=== PATIENT | female | born 1965 | race Caucasian/White ===

== ENCOUNTER 2019-06-01 15:16 | Emergency (ER) | payer OTHER ==
[~2019-06-01] VITALS: Ht 160 cm; Wt 72.6 kg
[2019-06-01] MEDS ORDERED: AUGMENTIN 875-1 EACH PO (15:34)
[2019-06-01 16:15] VITALS: BP 136/48
== END 2019-06-01 16:04 | disposition home or self-care (01) ==
LOC: ER 15:16
DX: S61.431A Puncture wound without foreign body of right hand, initial encounter (principal); L03.113 Cellulitis of right upper limb; W55.01XA Bitten by cat, initial encounter; Y93.89 Activity, other specified; Y92.89 Other specified places as the place of occurrence of the external cause; Y99.8 Other external cause status

== ENCOUNTER 2020-06-10 17:38 | Emergency (ER) | payer OTHER ==
[~2020-06-10] VITALS: Ht 160 cm; Wt 79.4 kg
[~2020-06-10 17:38] MED LIST: AUGMENTIN 875-1 EACH PO
[2020-06-10] MEDS ORDERED: SYNTHROID100 MC1 PO (18:04)
[2020-06-10 18:09] LABS: URINE BILIRUBIN NEGATIVE (Negative); URINE BLOOD TRACE (Negative); URINE CLARITY CLEAR; URINE COLOR YELLOW; URINE GLUCOSE-RANDOM* NEGATIVE (Negative); URINE KETONES NEGATIVE (Negative); URINE LEUKOCYTES-REFLEX NEGATIVE (Negative); URINE NITRITE-REFLEX NEGATIVE (Negative); URINE PROTEIN (DIPSTICK) NEGATIVE (Negative); URINE SPECIFIC GRAVITY >= 1.030 (1.005-1.035); URINE UROBILINOGEN 0.2 E.U./dl (0.2-1.0)
[2020-06-10 19:35] LABS: ABSOLUTE NEUTROPHILS 5.2 thou/uL (1.4-8.2); BASOPHILS 0.8 % (0.0-2.0); EOSINOPHILS 1.8 % (0.0-3.0); HEMATOCRIT 39.5 % (37.0-47.0); LYMPHOCYTES 34.7 % (24.0-44.0); MCH 31.5 pg (26.0-34.0); MCHC 35.5 g/dL (28.0-37.0); MCV 88.7 fL (80.0-100.0); MONOCYTES 7.6 % (1.0-8.0); PLATELET COUNT 406 thou/uL (150-400); POLYS 55.1 % (36.0-66.0); RBC 4.46 mil/uL (4.20-5.00); RDW 12.8 % (10.5-14.5); WBC 9.5 thou/uL (4.0-11.0)
[2020-06-10 19:43] LABS: CALCIUM 8.6 mg/dL (8.5-10.1); CREATININE 1.1 mg/dL (0.6-1.0); POTASSIUM 3.8 mmol/L (3.5-5.1)
[2020-06-10 19:49] LABS: ALBUMIN 3.7 g/dL (3.4-5.0); TOTAL BILIRUBIN 0.2 mg/dL (0.2-1.0); TOTAL PROTEIN 7.4 g/dL (6.4-8.2)
[2020-06-10] MEDS ORDERED: MOBIC7.5 MG PO (21:10)
[2020-06-10 21:15] VITALS: BP 147/78
== END 2020-06-10 21:20 | disposition home or self-care (01) ==
LOC: ER 17:38
PROVIDERS: Nurse Practitioner Family
DX: S76.211A Strain of adductor muscle, fascia and tendon of right thigh, initial encounter (principal); R10.31 Right lower quadrant pain; R73.9 Hyperglycemia, unspecified; Z79.899 Other long term (current) drug therapy; X58.XXXA Exposure to other specified factors, initial encounter; Y93.89 Activity, other specified; Y92.89 Other specified places as the place of occurrence of the external cause; Y99.8 Other external cause status

== ENCOUNTER 2021-05-28 08:44 | Emergency (ER) | payer OTHER ==
[~2021-05-28] VITALS: Ht 160 cm; Wt 74.8 kg
[~2021-05-28 08:44] MED LIST changes: +MOBIC7.5 MG PO; +SYNTHROID100 MC1 PO
[2021-05-28 09:13] LABS: URINE BILIRUBIN NEGATIVE (Negative); URINE BLOOD TRACE (Negative); URINE CLARITY CLEAR; URINE COLOR YELLOW; URINE GLUCOSE-RANDOM* NEGATIVE (Negative); URINE KETONES NEGATIVE (Negative); URINE LEUKOCYTES-REFLEX NEGATIVE (Negative); URINE NITRITE-REFLEX NEGATIVE (Negative); URINE PROTEIN (DIPSTICK) NEGATIVE (Negative); URINE SPECIFIC GRAVITY <= 1.005 (1.005-1.035); URINE UROBILINOGEN 0.2 E.U./dl (0.2-1.0)
[2021-05-28 10:02] LABS: ABSOLUTE NEUTROPHILS 7.4 thou/uL (1.4-8.2); BASOPHILS 0.5 % (0.0-2.0); EOSINOPHILS 1.2 % (0.0-3.0); HEMATOCRIT 40.4 % (37.0-47.0); HEMOGLOBIN 13.7 gm/dL (12.0-15.0); LYMPHOCYTES 16.1 % (24.0-44.0); MCH 30.1 pg (26.0-34.0); MCV 88.7 fL (80.0-100.0); MONOCYTES 7.4 % (1.0-8.0); PLATELET COUNT 403 thou/uL (150-400); POLYS 74.8 % (36.0-66.0); RBC 4.55 mil/uL (4.20-5.00); WBC 9.9 thou/uL (4.0-11.0)
[2021-05-28 10:10] LABS: ANION GAP 9 mmol/L (7-16); BUN 12 mg/dL (7-18); CALCIUM 8.6 mg/dL (8.5-10.1); CHLORIDE 108 mmol/L (98-107); CO2 26 mmol/L (21-32); CREATININE 0.9 mg/dL (0.6-1.0); GLUCOSE 147 mg/dL (74-106); SODIUM 143 mmol/L (136-145)
[2021-05-28 10:19] LABS: ALBUMIN 3.7 g/dL (3.4-5.0); AMYLASE 41 U/L (25-115); LIPASE 108 U/L (73-393); SGOT 13 U/L (15-37); SGPT 20 U/L (14-59); TOTAL BILIRUBIN 0.2 mg/dL (0.2-1.0); TOTAL PROTEIN 7.4 g/dL (6.4-8.2); TROPONIN-I <0.06 ng/mL (<0.06)
[2021-05-28 11:37] VITALS: BP 128/83
--- NOTE | 2021-05-28 11:39 | EKG ---
[place] [address] [place] [address] ELECTROCARDIOGRAM REPORT Name: KIZZY SANCHEZ Room #: DEP YIN Rodrigez#: [id number] Admission: 05/28/21 Attend Phys: Discharge: 05/28/21 Date of : 61 Report #: [id number] [facility] ED Test Date: 2021-05-28 Test Time: 10:08:11 Pat Name: KIZZY SANCHEZ Department: Room: Gender: F [employer] Prevention [employer] Safety Manager: Harry : 1965 Requested By: Jakob Ruiz Order Number: [id number] MD: Ranch[place] Ambrose Measurements Intervals [place] Rate: 70 P: -10 KS: 137 QRS: 22 QRSD: 114 T: -37 QT: 395 QTc: 427 Interpretive Statements Sinus rhythm Incomplete right bundle branch block Probable anteroseptal infarct, old No previous ECG available for comparison Electronically Signed On 05-28-2021 11:39:15 CDT by Rancho Ambrose [email or web address] <ELECTRONICALLY SIGNED> By: Rancho Ambrose MD, [facility] 05/28/21 1139 [id number] [id number] Rancho Ambrose MD, FACC /EPI
== END 2021-05-28 11:37 | disposition home or self-care (01) ==
LOC: ER 08:44
PROVIDERS: Emergency Medicine
DX: R10.812 Left upper quadrant abdominal tenderness (principal); R11.0 Nausea